=== PATIENT | female | born 1960 | race African-American/Black ===

== ENCOUNTER → 2017-01-23 | Outpatient (CLI) | payer OTHER ==
--- NOTE | 2017-01-23 10:00 | KCIC ---
PROCEDURE Complete pelvic ultrasound. HISTORY Postmenopausal bleeding. TECHNIQUE Real-time ultrasound imaging of the pelvis using transabdominal and transvaginal windows is performed. COMPARISON None. FINDINGS Uterus measures 10.1 x 6.1 x 7.7 cm. There is a fibroid at the left fundus measuring 4 x 4.1 x 4.8 cm. There is a 3 millimeter calcification in the miduterine segment. The endometrial stripe is thickened measuring up to 16 millimeters. The right ovary measures 1.8 x 1.1 x 1.9 cm. The left ovary measures 2.2 x 1.9 x 2.4 cm. A cyst in the left ovary is seen measuring up to 1.2 cm. Normal blood flow in the ovaries is seen. No evidence of adnexal mass. No cul-de-sac free fluid is identified. IMPRESSION 1. Endometrial stripe is abnormally thickened. Considerations include endometrial hyperplasia, carcinoma, or polyp. Suggest further evaluation with tissue sampling. 2. Left fundal uterine fibroid. 3. Normal blood flow in the ovaries. Electronically signed by: Johnny Moody MD (Jan 23, 2017 09:59:16)
--- NOTE | 2017-01-23 10:16 | KCIC ---
Bilateral digital screening mammograms with CAD: HISTORY Routine screening. COMPARISON Comparison is made to previous studies dated 12/13/2012. FINDINGS Breast density category B. The skin and nipples show no abnormalities. No abnormal lymph nodes are seen in the axilla. The breast parenchyma shows scattered fibroglandular density. There are no dominant masses, suspicious calcifications or architectural distortions. IMPRESSION No evidence of malignancy. Recommend routine annual mammographic screening. This study was interpreted with the benefit of Computerized Aided Detection (CAD). Mammography is not 100% sensitive in detecting breast cancer. Therefore, a self breast exam and a clinical breast exam are very important. A negative mammogram does not negate a clinically suspicious finding and should not result in a delay in biopsying a clinically suspicious abnormality. BI-RADS category 1. Negative. This patient's information has been entered into a reminder system for the patient to be notified with the results of this examination and a target date for her next mammograms. Electronically signed by: Kamryn Madsen MD (Jan 23, 2017 10:14:40)
== END | disposition home or self-care (01) ==
LOC: KCIC US 07:55
PROVIDERS: ATTEND Obstetrics & Gynecology
DX: Z12.31 Encounter for screening mammogram for malignant neoplasm of breast (principal); N83.202 Unspecified ovarian cyst, left side; D25.9 Leiomyoma of uterus, unspecified; N95.0 Postmenopausal bleeding; N85.00 Endometrial hyperplasia, unspecified
CPT/HCPCS: 76830; 76856; G0202; 77067